=== PATIENT | male | born 1995 | race Caucasian/White ===

== ENCOUNTER 2019-09-14 12:09 | Emergency (ER) | payer BC ==
--- NOTE | 2019-09-14 12:18 | ER Document Report ---
HPI - HPI Patient complains to provider of: fever, nausea Onset: This morning Context: 24-year-old male with history of asthma and diabetes presents to the emergency department [facility] for complaints of fever nausea that started today. Reports he lives in [place], works at [employer]. Traveled to [place] September 02. No known exposure to the COVID-19. Denies vomiting and diarrhea. Reports he has been able to drink fluids. Does not check his blood glucose on a regular basis. Associated Symptoms: Fever, Nausea Exacerbated by: Denies Relieved by: Denies Similar symptoms previously: No Recently seen / treated by doctor: No Past Medical History - General Information source: Patient - Social History Smoking Status: Unknown if Ever Smoked Occupation: [employer] Family History: None Patient has suicidal ideation: No Patient has homicidal ideation: No Pulmonary Medical History: Reports: Hx Asthma Endocrine Medical History: Reports: Hx Diabetes Mellitus Type 2 Surgical Hx: Negative Vertical Provider Document - CONSTITUTIONAL Agree With Documented VS: Yes Exam Limitations: No Limitations General Appearance: WD/WN, No Apparent Distress Notes: Full physical exam could not be performed due to Covidien 19 isolation protocols. Constitutional: nontoxic appearance, no acute distress Eyes: Nonicteric, extraocular movements intact, sclera clear Respiratory: Nonlabored breathing, no use of accessory muscles, no tachypnea Cardiovascular: No JVD Gastrointestinal: Abdominal not distended Musculoskeletal: Moves all extremities well Skin: Normal color Neuro: Awake alert oriented normal speech Psych: Normal mood and affect - HEENT HEENT: Atraumatic, Normocephalic Course - Re-evaluation Re-evalutation: 09/14/19 12:28 Patient presents with for fever, dry cough, sore throat with no known Covid 19 exposure. Patient does have history of diabetes and asthma. Patient does not have emergency worriesome symptoms such as difficulty breathing, shortness of breath, chest pain, pressure, confusion or cyanosis. Patient is nontoxic looking, appears suitable for discharge as they are not of an advanced age, do not have any chronic medical conditions such as diabetes, CAD, immune deficiency, chronic lung disease or chronic kidney disease. Patient's vital signs are stable and patient is nontoxic in appearance. Based on [facility] guidelines patient will be tested for the COVID-19. Patient was reminded to monitor his temp, take Tylenol Motrin as indicated. He was also instructed to pay attention to his nausea and ensure he is drinking enough fluids to monitor his blood glucose. Good return precautions have been discussed with patient, patient verbalized understanding and is agreeable with discharge plan of care at this time. 09/14/19 14:23 Laboratory 09/14/19 09/14/19 12:50 12:52 Influenza A (Rapid) NEGATIVE Influenza B (Rapid) NEGATIVE Group A Strep Rapid NEGATIVE strep and influenza test negative, throat culture and covid 19 pending. arnoldo dubois n otified patient. He reports he is feeling dizzy, he took his metformin dose but has not been eating or drinking. He was advised to go to the emergency department for worsening symptoms. - Vital Signs Vital signs: 09/14/19 12:59 Heart rate 109, BP 108/63, O2 sat 97%, temp 99.7 Discharge - Discharge Clinical Impression: Cough, Sore throat Fever Qualifiers: Fever type: unspecified Qualified Code(s): R50.9 - Fever, unspecified Condition: Stable Disposition: HOME, SELF-CARE Instructions: Acetaminophen, Fever ([facility]), Sore Throat ([facility]) Additional Instructions: *You have been evaluated for a fever, sore throat, cough *You have been tested today for strep and influenza. You will be contacted in a few hours with these results. Should the strep test be negative we will do a throat culture. You may be contacted in 3 to 4 days should you need antibiotics. *You have also been tested for the COVID-19 virus. You will need to self quarantine yourself for the next 14 days or until you hear from the health department with your results. *For your comfort gargle with warm salt water and suck on throat lozenges, ensure you are drinking enough fluids to stay well-hydrated *Good hand washing, follow social distancing guidelines *Follow-up with a primary care provider as indicated *Return to urgency department immediately for difficulty breathing, concerns, needs As a person under investigation for Covid 19, the [facility] and Human Services, division of public health advises you to adhere to the following guidance until your test results are reported to you. If your test result is positive, you will receive additional information from your provider and your local health department at that time. Remain at home until you are cleared by the health provider or public health authorities. Keep a log of visitors to your home, notify any visitors to your home of your isolation status. If you plan to move to a new address or leave the county, notify the local health department in your County. Call your doctor or seek care if you have an urgent medical need. Before seeking medical care, call ahead to get instructions from the provider before arriving at the medical office clinic or hospital. Notify them that you are being tested for the virus that causes Covid 19 so that arrangements can be made, as necessary, to prevent transmission to others in the healthcare setting. Next, notify the local health department in your county. If a medical emergency arises and you need to call 911, inform dispatch and the first responders that you are being tested for the virus that causes Covid 19. Next, notify the local health department in your county. Guidance for worsening S/SX: For worsening symptoms, patient has been advised to contact their Primary Care Provider, or go to the nearest Emergency Department. Referrals: LOCALMD,NO [Primary Care Provider] - Follow up as needed
[2019-09-14 14:10] LABS: A TYPE INFLUENZA AG NEGATIVE (NEGATIVE); B INFLUENZA AG NEGATIVE (NEGATIVE)
== END 2019-09-14 15:51 | disposition home or self-care (01) ==
LOC: EDRDC 12:09
DX: J02.9 Acute pharyngitis, unspecified (principal); R05 Cough; R50.9 Fever, unspecified; R11.0 Nausea; E11.9 Type 2 diabetes mellitus without complications; Z20.828 Contact with and (suspected) exposure to other viral communicable diseases
CPT/HCPCS: 87070; 87635; 87804; 87880; 99201